=== PATIENT | female | born 1995 | race African-American/Black ===

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

== ENCOUNTER 2020-03-05 15:20 | Inpatient (IN) | payer MEDICAID ==
--- NOTE | 2020-03-05 16:05 | History and Physical Report ---
History of Present Illness Date of examination: 03/05/20 (IOL recommended by [facility] d/t GDM, pt non compliant with BG checks) Date of admission: 03/05/20 15:20 Chief complaint: I'm here for my induction. History of present illness: Pt is here today for IOL d/t GDM. Pt presented to the [facility] office on March 02 because of GDM diagnosed after a failed 1 hr and 3 hr gtt. She had been non compliant with blood glucose checks. A random glucose was obtained during [facility] visit and was found to be 100. Also a growth scan was completed and EFW was 8-15 (95%), therefore she was recommended for delivery by Dr. Aldrich. Past History : 2 Term Births: 0 Premature Births: 0 Living Children: 1 Para: 1 Mult. Births: 0 Prev : 0 Prev. attempt? 0 Aborta: 0 Elect. Ab: 0 Spont. Ab: 0 Ectopics: 0 # 1 Delivery date: 11/01/2016 Weeks Gestation: 37 Delivery type: Vaginal Anesthesia type: epidural Delivery location: [facility] Sex: female weight: 7.56 Comments: gestational diabetes Pt refused all shots for , pt not immune to rubella and refused that also Risk Factors: Smoked Tobacco Use: Never smoker Smokeless Tobacco Use: Never Passive smoke exposure: no Drug use: no HIV high-risk behavior: no Alcohol use: no Exercise: yes Times per week: 4 Type of Exercise: walking Seatbelt use: 100 % Sun Exposure: rarely Family History Risk Factors: Family History of LA in females < 65 years old: no Dietary Counseling: pn yes Past Medical History: Reviewed history from 07/31/2016 and no changes required: Negative Past Medical History Past Surgical History: Reviewed history from 07/31/2016 and no changes required: Negative Past Surgical History Past Medical History Anesthesia Complications: negative Anemia: negative Autoimmune Disorder: negative Bleeding Disorder: negative Blood Transfusions: negative Breast Disease: negative Diabetes: negative Heart Disease: negative Hypertension: negative Hepatitis/Liver Disease: negative Kidney Disease/UTI: negative Neurologic/Epilepsy/Migraines: negative Phlebitis/Varicosities: negative Psychiatric: negative Pulmonary Disease/Asthma: negative Thyroid Disease: negative Hospitalizations: negative Abnormal PAP: negative HAROLDO Exposure: negative Infertility: negative Uterine Anomaly: negative Uterine Surgery (not C/S): negative Other Gynecologic Problems: negative Social Hx: Patient is single Unemployed Infection History Hx of STD: none HIV Risk Eval: no Hepatitis B Risk Eval: low risk Personal hx. of genital herpes: no Partner hx. of genital herpes: no Rash, Viral, or Febrile illness since last LMP? no Varicella/Chicken Pox Status: Previous Disease TB Risk: no Genetic History Congenital Heart Defect: Mom: no Dad: no Bud Disease: Mom: no Dad: no Thalassemia Mom: no Dad: no Neural Tube Defect Mom: no Dad: no Down's Syndrome Mom: no Dad: no Som-Sachs Mom: no Dad: no Sickle Cell Disease/Trait Mom: no Dad: no Hemophilia Mom: no Dad: no Muscular Dystrophy Mom: no Dad: no Cystic Fibrosis Mom: no Dad: no [place] Chorea Mom: no Dad: no Mental Retardation Mom: no Dad: no Fragile X Mom: no Dad: no Other Genetic/Chromosomal Disorder Mom: no Dad: no Child w/other defect Mom: no Dad: no Enviromental Exposures Xray Exposure: no Medication, drug, or alcohol use since LMP: no Chemical/Other Exposure: no Exposure to Cat Liter: no Hx of Parvovirus (Fifth Disease): no Occupational Exposure to Children: none Active Medications (reviewed today): TABLET ( VIT-FE FUMARATE-FA TABS) Current Allergies (reviewed today): No known allergies Past History Past Medical History: no pertinent history Past Surgical History: no surgical history LANDSCAPING SUPERVISOR History: other (Pt with hx of GDM in last ) Family/Genetic History: none Social history: other (Late/ insufficent care for this .) - Obstetrical History Expected Date of Delivery: 03/14/20 Actual Gestation: 38 Week(s) 5 Day(s) : 2 Para: 1 Hx # Term Pregnancies: 1 Number of Pregnancies: 0 Spontaneous Abortions: 0 Induced : 0 Number of Living Children: 1 Medications and Allergies Allergies Allergy/AdvReac Type Severity Reaction Status Date / Time No Known Allergies Allergy Unverified 07/14/16 16:16 Home Medications Medication Instructions Recorded Confirmed Last Taken Type Pediatric Multivitamin No.76 3 each PO DAILY 07/14/16 11/01/16 10/30/16 History [Flintstones Complete] Ibuprofen [Motrin 600 MG tab] 600 mg PO Q8H PRN #30 tablet 11/01/16 Unknown Rx Review of Systems All systems: negative - Vital Signs Vital signs: Vital Signs Pulse Pulse Ox 97 H 93 03/05/20 16:03 03/05/20 16:03 Temp Pulse Resp BP Pulse Ox 97 H 93 03/05/20 16:03 03/05/20 16:03 - Physical Exam Breasts: Positive: deferred Cardiovascular: Regular rate, Normal S1, Normal S2 Lungs: Positive: Normal air movement Abdomen: Positive: normal appearance, soft Genitourinary (Female): Positive: normal external genitalia, normal perenium Vulva: both: normal Vagina: Positive: normal moisture. Negative: discharge Cervix: Negative: lesion, discharge Uterus: Positive: normal size, normal contour Adnexa: both: normal Anus/Rectum: Positive: normal perianal skin, heme negative. Negative: rectal mass, hemorrhoids Extremities: Deep Tendon Reflex Grade: Normal +2 - Obstetrical FHR: auscultation normal Uterine Contraction Monitor Mode: External Cervical Dilatation: 0.5 (soft) Cervical Effacement Percentage: 50 station: -3 Uterine Contraction Pattern: Irregular Uterine Tone Measurement Phase: Resting Uterine Contraction Intensity: Mild Results Result Diagrams: 03/05/20 16:45 All other labs normal. GBS NEGATIVE HBsAg Screen Negative Negative *1 RPR Non Reactive Non Reactive *2 Rubella Antibodies, IgG [L] <0.90 index Immune >0.99 *3 Non-immune <0.90 Equivocal 0.90 - 0.99 Immune >0.99 ABO Grouping O *4 Rh Factor Positive *5 Please note: Prior records for this patient's ABO / Rh type are not available for additional verification. Antibody Screen Negative Negative *6 WBC 8.5 x10E3/uL 3.4-10.8 *7 RBC 4.33 x10E6/uL 3.77-5.28 *8 Hemoglobin 11.9 g/dL 11.1-15.9 *9 Hematocrit 35.8 % 34.0-46.6 *10 MCV 83 fL 79-97 *11 MCH 27.5 pg 26.6-33.0 *12 MCHC 33.2 g/dL 31.5-35.7 *13 RDW 12.6 % 11.7-15.4 *14 Platelets 327 x10E3/uL 150-450 *15 Neutrophils 81 % Not Estab. *16 Lymphs 13 % Not Estab. *17 Monocytes 4 % Not Estab. *18 Eos 1 % Not Estab. *19 Basos 0 % Not Estab. *20 ! Immature Cells <No Reported Value> *21 Neutrophils (Absolute) 6.9 x10E3/uL 1.4-7.0 *22 Lymphs (Absolute) 1.1 x10E3/uL 0.7-3.1 *23 Monocytes(Absolute) 0.3 x10E3/uL 0.1-0.9 *24 Eos (Absolute) 0.1 x10E3/uL 0.0-0.4 *25 Baso (Absolute) 0.0 x10E3/uL 0.0-0.2 *26 ! Immature Granulocytes 1 % Not Estab. *27 ! Immature Grans (Abs) 0.0 x10E3/uL 0.0-0.1 *28 ! NRBC <No Reported Value> *29 Hematology Comments: <No Reported Value> *30 Tests: (2) HB Solu + Rflx Fra (922085) Hemoglobin (Hgb) Solubility Negative Negative *31 Tests: (3) HIV Ag/Ab with Reflex ([id number]) HIV Screen 4th Generation wRfx Non Reactive Non Reactive *32 Tests: (4) Gest. Diabetes 1-Hr Screen ([id number]) ! Gestational Diabetes Screen [H] 199 mg/dL 65-139 *33 According to ADA, a glucose threshold of >139 mg/dL after 50-gram load identifies approximately 80% of women with gestational diabetes mellitus, while the sensitivity is further increased to approximately 90% by a threshold of >129 mg/dL. Tests: (5) HCV Ab w/Rflx to Verification ([id number]) ! HCV Ab <0.1 s/co ratio 0.0-0.9 *34 Tests: (6) Comment: (220373) ! Comment: SPRCS *35 Non reactive HCV antibody screen is consistent with no HCV infection, unless recent infection is suspected or other evidence exists to indicate HCV infection. Tests: (7) Urine Culture, Routine ([id number]) Urine Culture, Routine Final report *36 Tests: (8) Result ([id number]) ! Result 1 MUG *37 Mixed urogenital darius Greater than 100,000 colony forming units per mL Assessment and Plan A: 24 y.o. @ 38+ wks, IOL for GDM. Non compliant with glucose checks, insufficient care. Cervical exam: 50/-3. GBS positive. P: Admit to labor and delivery for IOL. Blood glucose checks q 6 hrs. Cervidil for cervical ripening. Antibiotics while in labor. Case management after delivery d/t insufficient care. - Patient Problems (1) Gestational diabetes mellitus Current Visit: Yes Status: Acute Qualifiers: Gestational diabetes mellitus control: unspecified Trimester: third trimester Qualified Code(s): O24.419 - Gestational diabetes mellitus in p regnancy, unspecified control Plan to address problem: Will monitor glucose levels q 6 hrs. Cover with insulin sliding scale per protocol. (2) 38 to 41 weeks gestation of Onset Date: ~03/05/20 Current Visit: Yes Status: Acute Plan to address problem: Monitor status with EFM (3) GBS (group B streptococcus) infection Onset Date: ~03/05/20 Current Visit: Yes Status: Acute Plan to address problem: Antibiotics ordered. (4) care insufficient Onset Date: ~03/05/20 Current Visit: Yes Status: Acute Qualifiers: Trimester: third trimester Qualified Code(s): O09.33 - Supervision of with insufficient care, third trimester Plan to address problem: Case management for after delivery to make sure pt is assist with needs at home.
[2020-03-05] MEDS ORDERED: CARBOPROST TROMETHAMINE 250 MCG/1 ML INJ IM PRN (16:54)
[2020-03-05] MEDS ORDERED: ONDANSETRON 4 MG/2 ML INJ IV PRN (16:54)
[2020-03-05] MEDS ORDERED: PROMETHAZINE 25 MG TAB PO PRN (16:54)
[2020-03-05] MEDS ORDERED: DINOPROSTONE 10 MG VAG SUPP VG ONE (16:54)
[2020-03-05] MEDS ORDERED: TERBUTALINE 1 MG/1 ML INJ SUB-Q PRN (16:54)
[2020-03-05] MEDS ORDERED: ACETAMINOPHEN 325 MG TAB PO PRN (16:54)
[2020-03-05] MEDS ORDERED: ePHEDrine SULFATE 50 MG/1 ML INJ IV PRN (16:54)
[2020-03-05] MEDS ORDERED: METHYLERGONOVINE MALEATE 0.2 MG/ML VIAL IM PRN (16:54)
[2020-03-05] MEDS ORDERED: LIDOCAINE (2%) 20 MG/1 ML VIAL 20 ML MDV INFILTRATI ONE (16:54)
[2020-03-05] MEDS ORDERED: OXYTOCIN 10 UNIT/1 ML INJ IM PRN (16:54)
[2020-03-05] MEDS ORDERED: MINERAL OIL 30 ML ORAL LIQD PO PRN (16:54)
[2020-03-05] MEDS ORDERED: NALOXONE 0.4 MG/1 ML INJ IV PRN (16:54)
[2020-03-05] MEDS ORDERED: miSOPROStol 200 MCG TAB PR PRN (16:54)
[2020-03-05] MEDS ORDERED: INSULIN REGULAR, HUMAN 100 UNIT/ML 3ML VIAL SUB-Q SCH (17:00)
[2020-03-05] MEDS ORDERED: LACTATED RINGERS 1,000 ML IV SCH (17:00)
[2020-03-05] MEDS ORDERED: DEXTROSE 50% IN WATER (25GM) 50 ML SYRINGE IV PRN (17:00)
[2020-03-05] MEDS ORDERED: OXYTOCIN 20 UNIT/1000ML DRIP 20 UNITS/1,000 ML BAG IV SCH (17:00)
[2020-03-05 17:07] LABS: Hematocrit 30.7 % (30.3-42.9); Hemoglobin 10.1 gm/dl (10.1-14.3); Mean Corpuscular HGB Conc 33 % (30-34); Mean Corpuscular Volume 81 fl (79-97); Platelet Count 284 K/mm3 (140-440); Red Cell Distribution Width 14.7 % (13.2-15.2)
[2020-03-05] MEDS ORDERED: AMPICILLIN/NS 2 GM/100 ML 2 GM/100 ML BAG IV ONE (19:38)
[2020-03-05] MEDS ORDERED: AMPICILLIN/NS 1 GM/50 ML 1 GM/50 ML BAG IV SCH (22:00)
[2020-03-06] MEDS: fentaNYL 100 MCG/2 ML INJ IV PRN ×2 (00:28→02:00)
[2020-03-06] MEDS ORDERED: AMPICILLIN/NS 2 GM/100 ML 2 GM/100 ML BAG IV ONE (02:30)
[2020-03-06] MEDS ORDERED: LIDOCAINE (2%) 20 MG/1 ML VIAL 20 ML MDV INFILTRATI ONE (03:18)
--- NOTE | 2020-03-06 03:40 | Procedure Note ---
OB Delivery Note - Delivery Date of Delivery: 03/06/20 Surgeon: NICKY GIRALDO Estimated blood loss: 300cc - Vaginal Delivery presentation: vertex Delivery position: OA Intrapartum events: precipitous labor- <3hr Delivery induction: cervidil Delivery monitor: external FHT, external uterine Route of delivery: Delivery placenta: spontaneous Episiotomy: none Delivery laceration: 2nd degree (midline no extension) Delivery repair: vicryl Anesthesia: local Delivery comments: MD arrived to find baby delivered and on the [place] warmer with essie nursing team. Placenta was delivering as provider entered the room. Pt was noted to have 2nd degree laceration without extension that was repaired in usual fashion with 3-0 vicryl under local anesthesia. Pt tolerated the procedure well. EBL 300ml. - Infant A at 1 minute: 8 at 5 minutes: 9 Gender: Male (8lbs 9oz)
[2020-03-06] MEDS ORDERED: WITCH HAZEL/ GLYCERIN PAD TP PRN (03:52)
[2020-03-06] MEDS ORDERED: diphenhydrAMINE 25 MG CAP PO PRN (03:52)
[2020-03-06] MEDS ORDERED: PROMETHAZINE 25 MG TAB PO PRN (03:52)
[2020-03-06] MEDS ORDERED: MAGNESIUM HYDROXIDE (MOM) ORAL LIQD UDC PO PRN (03:52)
[2020-03-06] MEDS ORDERED: LANOLIN/ZINC/DIMETHICONE (LANSINOH) 7 GM TP PRN (03:52)
[2020-03-06] MEDS: IBUPROFEN 800 MG TAB PO SCH ×2 (05:38→12:05)
--- NOTE | 2020-03-06 08:21 | Progress Note ---
Assessment and Plan A: 24 y.o. s/p precipitous vaginal delivery @ term. Stable . P: Continue with care. Post delivery H/H ordered. Case management consult ordered. Anticipate discharge home in AM on Mar 07. - Patient Problems (1) Gestational diabetes mellitus Current Visit: Yes Status: Resolved Qualifiers: Gestational diabetes mellitus control: unspecified Trimester: third trime ster Qualified Code(s): O24.419 - Gestational diabetes mellitus in , unspecified control (2) 38 to 41 weeks gestation of Onset Date: ~03/05/20 Current Visit: Yes Status: Resolved (3) GBS (group B streptococcus) infection Onset Date: ~03/05/20 Current Visit: Yes Status: Resolved (4) care insufficient Onset Date: ~03/05/20 Current Visit: Yes Status: Resolved Qualifiers: Trimester: third trimester Qualified Code(s): O09.33 - Supervision of with insufficient care, third trimester Subjective - Subjective Date of service: 03/06/20 (Pt states feeling some pain) Principal diagnosis: s/p , 5 hours Interval history: Pt is here today for IOL d/t GDM. Pt presented to the [facility] office on March 02 because of GDM diagnosed after a failed 1 hr and 3 hr gtt. She had been non compliant with blood glucose checks. A random glucose was obtained during [facility] visit and was found to be 100. Also a growth scan was completed and EFW was 8-15 (95%), therefore she was recommended for delivery by Dr. Aldrich. Past History : 2 Term Births: 0 Premature Births: 0 Living Children: 1 Para: 1 Mult. Births: 0 Prev : 0 Prev. attempt? 0 Aborta: 0 Elect. Ab: 0 Spont. Ab: 0 Ectopics: 0 # 1 Delivery date: 11/01/2016 Weeks Gestation: 37 Delivery type: Vaginal Anesthesia type: epidural Delivery location: [facility] Infant Sex: female weight: 7.56 Comments: gestational diabetes Pt refused all shots for infant, pt not immune to rubella and refused that also Risk Factors: Smoked Tobacco Use: Never smoker Smokeless Tobacco Use: Never Passive smoke exposure: no Drug use: no HIV high-risk behavior: no Alcohol use: no Exercise: yes Times per week: 4 Type of Exercise: walking Seatbelt use: 100 % Sun Exposure: rarely Family History Risk Factors: Family History of IN in females < 65 years old: no Dietary Counseling: pn yes Past Medical History: Reviewed history from 07/31/2016 and no changes required: Negative Past Medical History Past Surgical History: Reviewed history from 07/31/2016 and no changes required: Negative Past Surgical History Past Medical History Anesthesia Complications: negative Anemia: negative Autoimmune Disorder: negative Bleeding Disorder: negative Blood Transfusions: negative Breast Disease: negative Diabetes: negative Heart Disease: negative Hypertension: negative Hepatitis/Liver Disease: negative Kidney Disease/UTI: negative Neurologic/Epilepsy/Migraines: negative Phlebitis/Varicosities: negative Psychiatric: negative Pulmonary Disease/Asthma: negative Thyroid Disease: negative Hospitalizations: negative Abnormal PAP: negative HAROLDO Exposure: negative Infertility: negative Uterine Anomaly: negative Uterine Surgery (not C/S): negative Other Gynecologic Problems: negative Social Hx: Patient is single Unemployed Infection History Hx of STD: none HIV Risk Eval: no Hepatitis B Risk Eval: low risk Personal hx. of genital herpes: no Partner hx. of genital herpes: no Rash, Viral, or Febrile illness since last LMP? no Varicella/Chicken Pox Status: Previous Disease TB Risk: no Genetic History Congenital Heart Defect: Mom: no Dad: no Bud Disease: Mom: no Dad: no Thalassemia Mom: no Dad: no Neural Tube Defect Mom: no Dad: no Down's Syndrome Mom: no Dad: no Som-Sachs Mom: no Dad: no Sickle Cell Disease/Trait Mom: no Dad: no Hemophilia Mom: no Dad: no Muscular Dystrophy Mom: no Dad: no Cystic Fibrosis Mom: no Dad: no Shock Chorea Mom: no Dad: no Mental Retardation Mom: no Dad: no Fragile X Mom: no Dad: no Other Genetic/Chromosomal Disorder Mom: no Dad: no Child w/other defect Mom: no Dad: no Enviromental Exposures Xray Exposure: no Medication, drug, or alcohol use since LMP: no Chemical/Other Exposure: no Exposure to Cat Liter: no Hx of Parvovirus (Fifth Disease): no Occupational Exposure to Children: none Active Medications (reviewed today): TABLET ( VIT-FE FUMARATE-FA TABS) Current Allergies (reviewed today): No known allergies Patient reports: appetite normal, voiding normally, pain well controlled [place]: doing well Objective - Vital Signs Latest vital signs: Vital Signs Temp Pulse Resp BP BP Pulse Ox 03/06/20 07:51 97.9 F 81 20 102/61 96 03/06/20 05:38 16 03/06/20 05:23 96 H 113/58 03/06/20 05:22 97 H 80 L 03/06/20 05:21 98.3 F 96 H 16 113/58 99 03/06/20 04:42 83 105/58 03/06/20 04:27 80 110/60 03/06/20 04:12 82 118/69 03/06/20 03:57 83 115/57 03/06/20 03:43 79 100 03/06/20 03:42 98.3 F 03/06/20 03:38 92 H 99 03/06/20 03:33 94 H 100 03/06/20 03:28 89 99 03/06/20 03:27 87 112/56 03/06/20 03:22 91 H 100 03/06/20 03:18 95 H 100 03/06/20 03:13 80 99 03/06/20 03:12 82 110/57 03/06/20 03:08 83 99 03/06/20 03:03 79 99 03/06/20 02:58 84 100 03/06/20 02:57 79 0 L 03/06/20 02:53 84 100 03/06/20 02:48 80 100 03/06/20 02:43 94 H 100 03/06/20 02:38 95 H 100 03/06/20 02:33 89 100 03/06/20 02:28 65 100 03/06/20 02:24 82 136/76 03/06/20 02:23 91 H 99 03/06/20 02:18 79 99 03/06/20 02:13 79 99 03/06/20 02:08 70 98 03/06/20 02:03 78 99 03/06/20 02:00 18 03/06/20 01:58 78 98 03/06/20 01:53 78 99 03/06/20 01:48 86 99 03/06/20 01:43 79 97 03/06/20 01:38 106 H 99 03/06/20 01:33 92 H 99 03/06/20 01:28 96 H 18 98 03/06/20 01:25 74 113/67 03/06/20 01:23 77 98 03/06/20 01:18 61 99 03/06/20 01:13 89 100 03/06/20 00:59 90 99 03/06/20 00:54 72 98 03/06/20 00:49 87 98 03/06/20 00:44 73 97 03/06/20 00:39 67 98 03/06/20 00:34 64 98 03/06/20 00:29 67 100 03/06/20 00:25 65 100/54 03/06/20 00:24 76 99 03/06/20 00:19 69 99 03/06/20 00:14 71 98 03/06/20 00:09 72 93 03/06/20 00:04 84 98 03/05/20 23:59 78 99 03/05/20 23:54 68 98 03/05/20 23:49 82 100 03/05/20 23:41 72 99 03/05/20 23:36 71 98 03/05/20 23:31 73 98 03/05/20 23:26 71 98 03/05/20 23:25 76 102/54 03/05/20 23:20 68 98 03/05/20 23:15 68 98 03/05/20 23:10 67 99 03/05/20 23:05 67 99 03/05/20 23:00 65 99 03/05/20 22:55 68 99 03/05/20 22:50 62 99 03/05/20 22:45 70 98 03/05/20 22:40 75 98 03/05/20 22:35 64 98 03/05/20 22:30 85 98 03/05/20 22:25 62 108/63 99 03/05/20 22:20 76 99 03/05/20 22:15 70 98 03/05/20 22:10 70 99 03/05/20 22:05 66 98 03/05/20 22:00 84 99 03/05/20 21:50 73 99 03/05/20 21:45 76 99 03/05/20 21:40 77 98 03/05/20 21:35 81 98 03/05/20 21:30 86 98 05 21:25 85 99 03/05/20 21:20 73 99 03/05/20 21:13 88 99 03/05/20 21:08 83 99 03/05/20 21:03 83 98 03/05/20 20:58 80 99 03/05/20 20:53 79 99 03/05/20 20:48 82 99 03/05/20 20:43 74 98 03/05/20 20:38 87 99 03/05/20 20:33 81 99 03/05/20 20:28 79 99 03/05/20 20:26 82 103/65 03/05/20 20:23 80 99 03/05/20 20:18 88 98 03/05/20 20:13 79 99 03/05/20 20:08 95 H 99 03/05/20 20:03 76 98 03/05/20 19:58 89 98 03/05/20 19:53 82 99 03/05/20 19:48 86 98 03/05/20 19:43 85 99 03/05/20 19:38 86 99 03/05/20 19:33 76 99 03/05/20 19:28 77 99 03/05/20 19:23 98.7 F 80 18 113/68 99 03/05/20 19:20 80 113/68 03/05/20 19:11 84 03/05/20 17:45 98.7 F 03/05/20 17:16 56 L 85 03/05/20 17:15 77 L 03/05/20 17:10 65 76 L 03/05/20 17:08 38 L 92 03/05/20 16:54 40 L 84 03/05/20 16:13 91 H 96 03/05/20 16:08 51 L 92 03/05/20 16:07 98 H 116/59 03/05/20 16:03 97 H 93 Intake and Output 03/05/20 03/06/20 03/06/20 22:59 06:59 14:59 Output Total 300 Balance -300 Output: Urine 300 Void 300 Other: Total, Output Amount 300 Weight 170 lb Estimated Blood Loss 300 - Exam Narrative Exam: Pt doing well. Discussed that she will be seen by social organization professor before discharge home d/t limited PNC, and just to check to make sure that pt has everything that she needs at home for baby. Pt verbalized understanding. Breasts: Present: deferred Cardiovascular: Present: Regular rate Lungs: Present: Normal air movement Abdomen: Present: normal appearance, soft Vulva: both: normal Uterus: Present: normal, firm Extremities: Present: normal Deep Tendon Reflex Grade: Normal +2 Incision: Present: intact (Laceration healing well. Well approximated. ) - Labs Labs: Abnormal lab results 03/05/20 Range/Units 16:45 MCH 27 L (28-32) pg
[2020-03-06] MEDS: ACETAMINOPHEN 500 MG TAB PO PRN (08:54)
[2020-03-06] MEDS: PRENATAL VIT27-FE FUMARATE-FOLIC ACID VIT TAB PO SCH (12:12)
[2020-03-06] MEDS ORDERED: BENZOCAINE/MENTHOL 20/0.5% TOP SPRAY 56 GM TP PRN (14:12)
[2020-03-06 16:24] LABS: Hematocrit 26.4 % (30.3-42.9); Hemoglobin 8.7 gm/dl (10.1-14.3)
[2020-03-07] MEDS: IBUPROFEN 800 MG TAB PO SCH ×3 (00:51→12:49)
[2020-03-07] MEDS ORDERED: DIPHtheria,PERTUSSIS(ACELL),TETANUS VACCINE/PF 0.5 ML VIAL IM ONE (06:00)
[2020-03-07] MEDS ORDERED: MEASLES, MUMPS & RUBELLA 12,500 UNIT/0.5 ML VACCINE SUB-Q ONE (06:00)
--- NOTE | 2020-03-07 08:05 | Discharge Summary ---
Providers - Providers Date of Admission: 03/05/20 15:20 Date of discharge: 03/07/20 (pt desires d/c) Attending physician: NICKY GIRALDO 03/06/20 08:22 Consult to Case Management [CONS] Routine Services Needed at Discharge: Other Notified:: case management Phone number called:: [phone] Additional Physician Instructions: Insufficent care. To make sure patient has all she needs at home. Primary care physician: SORAYA KING Hospitalization Reason for admission: induction of labor, IUP at term Delivery: Episiotomy: none Laceration: none Incision: normal Other procedures: none complications: none Discharge diagnosis: IUP at term delivered baby: male (mom will call to [facility] circ in OB office) Hospital course: uncomplicated vaginal delivery Pt resting No c/o voiced Declines BC @ this time VSS FF below umb Lochia small perineum intact H&H 01/24 drop r/t blood loss from delivery Pt is asymptomatic Doing well s/p vag delivery P: d/c today with instructions RTO 1 week circ 4 weeks PP care. Condition at discharge: Good Disposition: DC-01 TO HOME OR SELFCARE - Discharge Diagnoses (1) Vaginal delivery Status: Acute Comment: RTO 4 weeks PP care Plan - Discharge Medications Prescriptions: Lidocain2.5%/Prilocai2.5% [Emla] 2 gm TP ONCE #1 tube - Provider Discharge Summary Activity: routine, no sex for 6 weeks, no heavy lifting 4 weeks, no strenuous exercise Diet: routine Instructions: routine Additional instructions: [] Smoking cessation referral if applicable(refer to patient education folder for contact #) [] Refer to [facility] Booklet Call your doctor immediately for: * Fever > 100.5 * Heavy vaginal bleeding ( >1 pad per hour) * Severe persistent headache * Shortness of breath * Reddened, hot, painful area to leg or breast * Drainage or odor from incision. * Keep incision clean and dry at all times and follow doctor's instructions regarding bathing/showering - Follow up plan Follow up: SORAYA KING MD [Primary Care Provider] - 7 Days (Please call [phone] to schedule your visit in 4 weeks and your son's circumcision in 1 week. Bring the EMLA cream with you to his visit. Do NOT use at home. Take motrin/ibuprofen for pain/cramping. Call with any concerns.)
[2020-03-07] MEDS: PRENATAL VIT27-FE FUMARATE-FOLIC ACID VIT TAB PO SCH (10:13)
[2020-03-07] MEDS: ACETAMINOPHEN 500 MG TAB PO PRN (10:13)
[2020-03-07 17:28] VITALS: BP 115/65
== END 2020-03-07 18:03 | disposition home or self-care (01) | DRG 774 ==
LOC: LD 15:20 → OB 03-06 05:55
PROVIDERS: ADMIT Obstetrics & Gynecology; ATTEND Obstetrics & Gynecology
PROC: 10E0XZZ Delivery of Products of Conception, External Approach (ICD-10-PCS; principal; 2020-03-06)
PROC: 0KQM0ZZ Repair Perineum Muscle, Open Approach (ICD-10-PCS; 2020-03-06)
PROC: 3E0P7VZ Introduction of Hormone into Female Reproductive, Via Natural or Artificial Opening (ICD-10-PCS; 2020-03-06)
PROC: 3E0234Z Introduction of Serum, Toxoid and Vaccine into Muscle, Percutaneous Approach (ICD-10-PCS; 2020-03-07)
DX: O24.429 Gestational diabetes mellitus in childbirth, unspecified control (principal); O98.82 Other maternal infectious and parasitic diseases complicating childbirth; Z3A.38 38 weeks gestation of pregnancy; Z37.0 Single live birth; Z20.828 Contact with and (suspected) exposure to other viral communicable diseases; Z23 Encounter for immunization; B95.1 Streptococcus, group B, as the cause of diseases classified elsewhere; O62.3 Precipitate labor; O70.1 Second degree perineal laceration during delivery
CPT/HCPCS: 36415; 59200; 82962; 85014; 85018; 85027; 86592; 86850; 86900; 86901; G0378; A6250; J0290; J1815; J3010; J7120; U0003-CS